=== PATIENT | female | born 1940 | race Caucasian/White ===

== ENCOUNTER 2022-06-08 12:11 | Outpatient (CLI) | payer MEDICARE, BC, SELFPAY | END 2022-06-08 12:12 | disposition home or self-care (01) | LOC: AMB 06-23 20:56 | PROVIDERS: Visit Provider Emergency Medicine | DX: S49.91XA Unspecified injury of right shoulder and upper arm, initial encounter (principal); U07.1 COVID-19; W18.30XA Fall on same level, unspecified, initial encounter; Y92.092 Bedroom in other non-institutional residence as the place of occurrence of the external cause | CPT/HCPCS: A0425; A0427 ==

== ENCOUNTER 2022-12-02 18:53 | Outpatient (CLI) | payer MEDICARE, OTHER, SELFPAY | END 2022-12-02 18:54 | disposition home or self-care (01) | LOC: AMB 12-04 10:35 | PROVIDERS: Visit Provider Emergency Medicine Emergency Medical Services | DX: S09.90XA Unspecified injury of head, initial encounter (principal); W07.XXXA Fall from chair, initial encounter; Y92.129 Unspecified place in nursing home as the place of occurrence of the external cause | CPT/HCPCS: A0425; A0427 ==